=== PATIENT | female | born 2000 | race Caucasian/White ===

== ENCOUNTER 2025-03-04 17:37 | Observation (INO) ==
[2025-03-04 18:02] LABS: Hematocrit (blood only) 40.6 % (37.0-47.0); Hemoglobin 13.3 g/dl (12.0-16.0); Immature Granulocytes # (auto) 0.03 K/uL (0.01-0.20); Immature Granulocytes % (auto) 0.4 %; Mean Corpuscular Hemoglobin 25.8 pg (25.0-34.0); Mean Corpuscular Volume 78.7 fL (80.0-100.0); Platelet Count 392 K/uL (130-400); RDW Standard Deviation 40.4 fL (36.4-46.3); Red Blood Count 5.16 M/uL (4.20-5.40); White Blood Count 7.90 K/ul (4.8-10.8)
[2025-03-04 18:19] LABS: Alanine Aminotransferase 440.0 U/L (7-52); Albumin Globulin Ratio 1.3 (0.9-2); Albumin Level 4.8 gm/dl (3.4-5.0); Alkaline Phosphatase 125.0 U/L (34-104); Anion Gap 5.0 (3-11); Bilirubin,Total 2.8 mg/dl (0.2-1.0); Blood Urea Nitrogen 9.0 mg/dl (6-23); Calcium 9.6 mg/dl (8.6-10.3); Carbon Dioxide 27.0 mmol/L (21-32); Chloride 104.0 mmol/L (98-107); Creatinine Clr Calc Pharmacy 113.1 ml/min; Globulin 3.7 gm/dl (2.5-4.0); Glucose 95.0 mg/dl (70-99(Fasting)); Lipase 15.0 U/L (11-82); Potassium 4.6 mmol/L (3.5-5.1); Sodium 136.0 mmol/L (136-145); Total Protein 8.5 gm/dl (6.0-8.3)
[2025-03-04 18:20] LABS: Pregnancy Test, Serum Negative (Negative)
[2025-03-04] MEDS: PLASMA-LYTE A 1,000 ML IV ONE (18:22)
[2025-03-04] MEDS: KETOROLAC TROMETHAMINE 15 MG/ML VIAL IV STA (18:22)
--- NOTE | 2025-03-04 18:55 | Emergency Department Note ---
Impression & Plan Symptomatic cholelithiasis, Transaminitis ED Provider Note NAME: MORENITA CALDERÓN AGE: 25 SEX: F : 2000 ARRIVES VIA: Walk-In INFORMANT: Patient, partner ED PROVIDER(S): Milad Wilson DO CHIEF COMPLAINT: abdominal pain HPI: This is a 25-year-old female with the PMHx of hypothyroidism, BA and recent presenting to [facility] for further evaluation of abdominal pain. Patient is accompanied by her partner who provide additional history. The patient reports that she was recently GL for evaluation of abdominal pain. This approximately 3 days ago. She was diagnosed with symptomatic cholelithiasis and discharged. She states that she has not had follow-up with general surgery. She states that her pain as well as nausea and vomiting have worsened. This led to her presentation today. They deny fever or chills. No cough or congestion. Denies chest pain or palpitations. No shortness of breath. She denies any abdominal surgical history. No urinary complaints. No recent changes in bowel movements. Patient denies recent changes in medications or OTC supplements. Patient offers no other complaints, today. ADDITIONAL HISTORY OBTAINED: Per HPI Chronic Medical/Social Conditions Affecting Care: Per HPI PAST MEDICAL HISTORY: See Below PAST SURGICAL HISTORY: See Below FAMILY HISTORY: See Below SOCIAL HISTORY: See Below HOME MEDICATIONS: See Below ALLERGIES: See Below VITALS: See Below PHYSICAL EXAMINATION: GENERAL: Sitting up in bed, alert, well appearing, well nourished, no distress, non-toxic EYE EXAM: normal conjunctiva. PERRL and EOM's grossly intact. OROPHARYNX: no exudate, no erythema, lips, buccal mucosa, and tongue normal and mucous membranes are moist NECK: supple, no nuchal rigidity, no adenopathy, non-tender LUNGS: Clear to auscultation. Normal chest wall mechanics HEART: no murmurs, regular rate, regular rhythm ABDOMEN: abdomen soft, Right upper quadrant and epigastric tenderness to palpation, positive Gannon sign, no evidence of peritonitis, no masses, no rebound or guarding. BACK: Back is symmetrical on inspection and there is no deformity, no midline tenderness, no CVA tenderness. SKIN: no rashes and no bruising UPPER EXTREMITIES: upper extremities are grossly normal. LOWER EXTREMITIES: No pitting edema. NEURO EXAM: Normal sensorium, GCS 15, normal speech, no gross weakness of arms, no gross weakness of legs. MEDICAL DECISION MAKING: Differential diagnoses includes but not limited to symptomatic cholelithiasis, acute cholecystitis, choledocholithiasis, appendicitis, bowel obstruction, diverticulitis, malignancy, nephrolithiasis, gastroenteritis, ACS, PNA, pancreatitis, hepatobiliary disease, UTI In summary, this is a 25 year old female who presented with abdominal pain. Differential as above. Nursing notes and pertinent past medical records reviewed. Vital signs reviewed and the patient is mildly hypertensive but otherwise afebrile and HDs. History and presentation revealed recent evaluation at [facility] on 03/02. She was diagnosed with symptomatic cholelithiasis and discharged. She has not followed up with EGS. Her pain and nausea worsened leading to presentation in the ED. Physical examination revealed RUQ/epigastrium TTP without evidence of peritonitis. As a result of my initial evaluation, we will plan to repeat the patient's labs today as well as right upper quadrant ultrasound. Do feel the patient's symptoms today are consistent with hepatobiliary pathology. Would consider symptomatic cholelithiasis, acute cholecystitis or choledocholithiasis. I do not have concerns for other intra- abdominal or pathology at this time. Will give IV fluid resuscitation as well as Toradol for pain control. Diagnostics interpreted by me include cardiac monitoring as listed below: -Cardiac Monitoring: An order was placed for continuous cardiac monitoring. The monitor shows a rate of 60-100 with regular rhythm. Patient completed laboratory studies and imaging. Results independently interpreted by me as below. The patient was managed with IV fluid resuscitation and Toradol. In summary, relatively healthy 25yoF diagnosed with symptomatic cholelithiasis on 03/01 at [facility]. Now with worsening pain. No fevers, WBC. New transaminitis - AST 503, ALT 440, AlkPhos 125. Tbili 2.8 w/ dBili 1.8. She is comfortable after fluids and pain medications. Cholelithiasis on US. CBD is 3mm. Patient was discussed with gastroenterology who recommended MRCP and coverage with IV antibiotics. Patient was started on IV Zosyn. Patient's MRCP was ordered. Further workup and evaluation deferred to the hospitalist team. Ultimately, the decision was made to admit the patient for symptomatic cholelithiasis with concerns for choledocholithiasis. I discussed the case with the hospitalist service via telephone/Tiger[employer] and they are agreeable to admit the patient to their services by Dr. Bustillo. Based on the above, including the patient's age, coexisting illnesses, labs, imaging, and exam findings the decision to treat as an inpatient. I discussed the patient with the hospitalist team who recommended admission to their services. They received the medications, treatments, interventions indicated above and their condition remained stable. I discussed my findings with the patient and their family and they understand and agree with the treatment plan. All patient / family questions were answered to their satisfaction. Consults/Care Managements Discussions: Per MDM ER treatment provided: See above Procedures:none Critical Care: None The chart was completed utilizing Synerscope voice recognition software. Grammatical errors, random word insertions, pronoun errors, and incomplete sentences are an occasional consequence of this system due to software limitations, ambient noise, and hardware issues. Any formal questions or concerns about the content, text, or information contained within the body of this dictation should be directly addressed to the physician for clarification. Past Med/Surg History Problem List (Updated 03/05/25 @ 16:09 by Milad Wilson DO) Transaminitis (Acute) Symptomatic cholelithiasis (Acute) Abnormal LFTs RUQ pain Headache with 35 completed weeks gestation Iron deficiency anemia of Hypothyroidism Dichorionic diamniotic twin , antepartum Gestational diabetes Encounter for anatomic survey Hypothyroidism affecting Chronic hypertension during , antepartum Medical History Monochorionic diamniotic twin Varicella vaccination Anxiety Hypertension Obesity (BMI 35.0-39.9 without comorbidity) Chris's thyroiditis Prediabetes Surgical History H/O left wrist surgery ganglion cyst Family History Mother Diabetes pre-diabetes Grandmother (Maternal) Osteoarthritis Grandfather (Maternal) Dementia, Onset Age: 68 Kidney disease Denies family history of Ovarian cancer Prostate cancer Deep vein thrombosis Coronary heart disease Dyslipidemia Alzheimer disease Bipolar disorder Crohn's disease Depression Heart disease Kidney disease Myocardial infarction Breast cancer Lung cancer COPD (chronic obstructive pulmonary disease) Colorectal cancer Pulmonary embolism Cancer Hypertension Ulcerative colitis Colonic polyp Stroke Asthma Social History (Reviewed 03/05/25 @ 03:20 by TERRY Brewster Smoking Status: Unknown if ever smoked Second Hand Exposure: No; Do You Dip or Chew Tobacco: No; Hx Alcohol Use: No Hx Substance Use: No Preferred Language: Faroese Communication Ability: Effective Visual Impairment: Limited Hearing Ability: Normal Sales And Merchandising Representative Required: No Beliefs That Will Affect Care: None marital status: marital status details: Bienvenido Calderón (22) [phone] Current Living Situation: Family Current Living Situation Comment: lives with spouse and 2 dogs current occupational status: employed current occupation: [employer] How many Children do You have: 0 Feels Safe at Home: Yes Childhood Exposure to Second-Hand Smoke: Yes Dental Care, Regularly: Yes Seatbelt Use: always Sunscreen Use: Yes Assistive Devices: None Allergies Allergies Allergy/AdvReac Type Severity Reaction Status Date / Time No Known Allergies Allergy Verified 03/04/25 20:30 Home Meds Previous Rx's Medication Instructions Recorded omeprazole 20 mg capsule,delayed 20 mg PO HS #34 caps 03/02/25 release Results & Data (ED) Vital Signs Vital Signs - 24 hr 03/04/25 17:43 03/04/25 18:24 03/04/25 20:00 Temperature 36.4 C L Temperature Source Temporal Artery Scan Pulse Rate 99 H Pulse Rate [Left Finger] 75 67 Pulse Rhythm [Left Finger] Pulse Strength [Left Finger] Respiratory Rate 18 20 16 Respiratory Effort / Characteristics Non-Labored Non-Labored Spontaneous Respiratory Depth Normal Normal Respiratory Pattern Regular Regular Blood Pressure 160/98 H Blood Pressure [Left Arm] 155/93 H 148/119 H Blood Pressure Mean 118 Blood Pressure Mean [Left Arm] 113 128 Blood Pressure Position [Left Arm] Pulse Oximetry 98 97 97 Oxygen Delivery Method Room Air Room Air Room Air Sepsis Recent Fever Within 48 Hours No Sepsis New/Unexplained Change in Mental Status N/A Sepsis Action Taken by Nursing No Action Required 03/04/25 21:00 Temperature Temperature Source Pulse Rate Pulse Rate [Left Finger] 81 Pulse Rhythm [Left Finger] Regular Pulse Strength [Left Finger] Normal Respiratory Rate 16 Respiratory Effort / Characteristics Non-Labored Spontaneous Respiratory Depth Normal Respiratory Pattern Regular Blood Pressure Blood Pressure [Left Arm] 133/96 Blood Pressure Mean Blood Pressure Mean [Left Arm] 108 Blood Pressure Position [Left Arm] Lying Pulse Oximetry 98 Oxygen Delivery Method Room Air Sepsis Recent Fever Within 48 Hours Sepsis New/Unexplained Change in Mental Status Sepsis Action Taken by Nursing Laboratory Data 03/05/25 04:21 03/05/25 15:05 Lab Results 03/04/25 03/04/25 Range/Units 17:52 20:00 WBC 7.90 (4.8-10.8) K/ul RBC 5.16 (4.20-5.40) M/uL Hgb 13.3 (12.0-16.0) g/dl Hct 40.6 (37.0-47.0) % MCV 78.7 L (80.0-100.0) fL MCH 25.8 (25.0-34.0) pg MCHC 32.8 (32.0-36.0) g/dL RDW Std Deviation 40.4 (36.4-46.3) fL RDW Coeff of Rei 14.2 (11.5-14.5) % Plt Count 392 (130-400) K/uL MPV 10.6 (9.4-12.4) fL Immature Gran % (Auto) 0.4 % Neut % (Auto) 62.0 % Lymph % (Auto) 27.6 % [place] % (Auto) 7.6 % Eos % (Auto) 1.6 % Baso % (Auto) 0.8 % Neut # (Auto) 4.90 (1.40-6.50) K/uL Lymph # (Auto) 2.18 (1.20-3.40) K/uL [place] # (Auto) 0.60 H (0.11-0.59) K/uL Eos # (Auto) 0.13 (0.00-0.50) K/uL Baso # (Auto) 0.06 (0.00-0.20) K/uL Immature Gran # (Auto) 0.03 (0.01-0.20) K/uL Sodium 136 (136-145) mmol/L Potassium 4.6 (3.5-5.1) mmol/L Chloride 104 (98-107) mmol/L Carbon Dioxide 27 (21-32) mmol/L Anion Gap 5 (3-11) BUN 9 (6-23) mg/dl Creatinine 0.71 (0.6-1.2) mg/dl Est Cr Clr Drug Dosing 113.1 ml/min eGFR 121.69 BUN/Creatinine Ratio 12.7 (10-20) Glucose 95 (70-99(Fasting)) mg/dl Calcium 9.6 (8.6-10.3) mg/dl Total Bilirubin 2.8 H (0.2-1.0) mg/dl Direct Bilirubin 1.8 H (0-0.2) mg/dl AST 503 H (13-39) U/L ALT 440 H (7-52) U/L Alkaline Phosphatase 125 H (34-104) U/L Total Protein 8.5 H (6.0-8.3) gm/dl Albumin 4.8 (3.4-5.0) gm/dl Globulin 3.7 (2.5-4.0) gm/dl Albumin/Globulin Ratio 1.3 (0.9-2) Lipase 15 (11-82) U/L HCG, Qual Negative (Negative) Urine Color Yellow Urine Appearance Clear (Clear) Urine pH 6.5 (4.5-7.5) Ur Specific Adams 1.006 (1.000-1.030) Urine Protein Negative (Negative) Urine Glucose (UA) Negative (Negative) Urine Ketones Negative (Negative) Urine Blood Negative (Negative) Urine Nitrite Negative (Negative) Urine Bilirubin Negative (Negative) Urine Urobilinogen Negative (Negative) Ur Leukocyte Esterase Negative (Negative) Urine Comment Administered Medications Piperacillin Sod/Tazobactam Sod (Zosyn) 4.5 gm in 100 mls @ 25 mls/hr IV Q8H ELBA; Protocol Stop: 03/15/25 03:59 Last Admin: 03/05/25 11:43 Dose: 25 mls/hr Documented By: Infusion: 03/05/25 08:58 Dose: Infused Documented By: Admin: 03/05/25 04:07 Dose: 25 mls/hr Documented By: JARON Pantoprazole Sodium (Protonix) 40 mg in 10 mls @ 5 mls/min IV DAILY ELBA Stop: 04/04/25 08:59 Last Admin: 03/05/25 08:08 Dose: 5 mls/min Documented By: DODIE Lactated Ringer's (Lr) 1,000 mls @ 125 mls/hr IV .Q8H ELBA Stop: 03/05/25 16:44 Last Admin: 03/05/25 11:43 Dose: 125 mls/hr Documented By: Infusion: 03/05/25 11:43 Dose: Infused Documented By: Admin: 03/05/25 00:53 Dose: 125 mls/hr Documented By: ASW Discontinued Medications Parenteral Electrolytes (Plasma-Lyte A Ph 7.4) 1,000 mls @ 999 mls/hr IV .Q1H1M ONE Stop: 03/04/25 19:03 Last Infusion: 03/04/25 20:16 Dose: Infused Documented By: Infusion: 03/04/25 19:52 Dose: 999 mls/hr Documented By: Infusion: 03/04/25 19:20 Dose: 0 mls/hr Documented By: Admin: 03/04/25 18:22 Dose: 999 mls/hr Documented By: DARREL Piperacillin Sod/Tazobactam Sod (Zosyn) 4.5 gm in 100 mls @ 200 mls/hr IV NOW ONE; Protocol Stop: 03/04/25 20:38 Last Infusion: 03/04/25 21:37 Dose: Infused Documented By: Admin: 03/04/25 21:07 Dose: 200 mls/hr Documented By: MACK Ketorolac Tromethamine (Ketorolac Tromethamine 15 Mg/Ml Vial) 15 mg IV NOW STA Stop: 03/04/25 18:04 Last Admin: 03/04/25 18:22 Dose: 15 mg Documented By: DARREL Imaging Data Radiologist's Impression: Gallbladder Ultrasound 03/04/25 18:03 EXAMINATION: US abdomen right upper quadrant COMPARISON: None HISTORY: Abdominal pain TECHNIQUE: The right upper quadrant of the abdomen was scanned in standard fashion with specialized ultrasound transducers using both villasenor scale and limited color Doppler techniques. Findings: Liver: The liver demonstrates normal homogeneous echotexture. No evidence of a focal hepatic mass or intrahepatic biliary ductal dilatation. The main portal vein is patent with antegrade flow. Gallbladder: The gallbladder is well distended and of normal morphology. There is scattered mobile gallstones. Sonographic Gannon sign is negative. No gallbladder wall thickening or pericholecystic fluid identified. Bile Ducts: Both the intra- and extrahepatic biliary system are of normal caliber. The common bile duct measures 3 mm in diameter. Pancreas: Visualized portions of the head and body of the pancreas are unremarkable. Right kidney: Normal echotexture, without mass or hydronephrosis. Right kidney craniocaudal dimension: 10.7 cm Fluid: No evidence of ascites or pleural effusions. Impression: 1. Cholelithiasis without evidence for acute cholecystitis Electronically signed by Marcel Byrd 03-04-2025 7:55 PM Cholangiopancreatography MRI 03/04/25 20:09 Exam(s): MRI MRCP EXAM: MR Abdomen Without Intravenous Contrast, MRCP Protocol CLINICAL HISTORY: Reason for exam: eval for choledoco. TECHNIQUE: Multiplanar magnetic resonance images of the abdomen without intravenous contrast using MRCP protocol. COMPARISON: No relevant prior studies available. FINDINGS: Bile ducts: Unremarkable. No stones. No ductal dilation. Gallbladder: Cholelithiasis without evidence acute cholecystitis. Liver: Unremarkable. Pancreas: Unremarkable. No ductal dilation. Spleen: Unremarkable. No splenomegaly. Adrenals: Unremarkable. No mass. Kidneys and ureters: Unremarkable. No hydronephrosis. Stomach and bowel: Unremarkable. No obstruction. IMPRESSION: No acute findings in the visualized abdomen. Electronically signed by: Paul Buck MD 03/04/25 21:45 PM Discharge Plan Visit Data Chief Complaint: Abdominal Pain Stated Complaint: PAIN IN STOMACH ED Provider: Milad Wilson Discharge Problem: Symptomatic cholelithiasis, Transaminitis Patient Disposition: Admitted As Inpatient Condition: Serious Discharge Instructions Interventions: ED Discharge Assessment Last Done: 03/05/25 00:32
--- NOTE | 2025-03-04 19:55 | Ultrasound Report ---
EXAMINATION: US abdomen right upper quadrant COMPARISON: None HISTORY: Abdominal pain TECHNIQUE: The right upper quadrant of the abdomen was scanned in standard fashion with specialized ultrasound transducers using both villasenor scale and limited color Doppler techniques. Findings: Liver: The liver demonstrates normal homogeneous echotexture. No evidence of a focal hepatic mass or intrahepatic biliary ductal dilatation. The main portal vein is patent with antegrade flow. Gallbladder: The gallbladder is well distended and of normal morphology. There is scattered mobile gallstones. Sonographic Gannon sign is negative. No gallbladder wall thickening or pericholecystic fluid identified. Bile Ducts: Both the intra- and extrahepatic biliary system are of normal caliber. The common bile duct measures 3 mm in diameter. Pancreas: Visualized portions of the head and body of the pancreas are unremarkable. Right kidney: Normal echotexture, without mass or hydronephrosis. Right kidney craniocaudal dimension: 10.7 cm Fluid: No evidence of ascites or pleural effusions. Impression: 1. Cholelithiasis without evidence for acute cholecystitis Electronically signed by Marcel Byrd 03-04-2025 7:55 PM
[2025-03-04 20:11] LABS: Appearance Urine Clear (Clear); Glucose Urine UA Negative (Negative)
[2025-03-04] MEDS: PIPERACILLIN/TAZOBACTAM 4.5 GM/100 ML BAG IV ONE (21:07)
--- NOTE | 2025-03-04 21:27 | History & Physical Report ---
Date of Service March 04, 2025 Assessment & Plan (1) RUQ pain: (2) Abnormal LFTs: Plan 25-year-old female presenting with right upper quadrant pain, abnormal LFTs. Gallbladder ultrasound reveals cholelithiasis with no evidence of acute cholecystitis. MRCP completed with no abnormalities noted #Right upper quadrant pain/abnormal LFTs/cholelithiasis Observation to medical Keep n.p.o. for now LR at 125 mL/h x 2 L Toradol as needed for pain control Zofran as needed for nausea Empiric treatment with Zosyn for now Continue Protonix GI consultation appreciated Check acute hepatitis panel, acetaminophen level and INR Repeat LFTs in the morning #DVT prophylaxis SCDs to bilateral lower extremities History of Present Illness Chief Complaint: right upper quadrant abdominal pain Primary Care Provider: ASHLEIGH Christophershira Mustafa is a pleasant 25yo female Presenting with right upper quadrant pain. Patient was seen at [facility] emergency room on 03/01 with right upper quadrant and epigastric pain. Reports she has tried ibuprofen, Tums and Gas-X which provide temporary relief. She had an ultrasound of the gallbladder which revealed no evidence of cholecystitis or obstruction. She was ultimately discharged home on omeprazole. She has been taking Tylenol and Pepcid. Returns to the ER today with worsening pain, radiation into her back. Some discomfort with deep breaths, nausea and decreased PO intake. Allergies Allergy/AdvReac Type Severity Reaction Status Date / Time No Known Allergies Allergy Verified 03/04/25 20:30 Home Medications Medication Instructions Recorded Confirmed Type omeprazole 20 mg capsule,delayed 20 mg PO HS #34 caps 03/02/25 03/04/25 Rx release Past Med/Surg History Problem List (Updated 03/05/25 @ 03:22 by Marla Bustillo DO) Abnormal LFTs RUQ pain Headache with 35 completed weeks gestation Iron deficiency anemia of Hypothyroidism Dichorionic diamniotic twin , antepartum Gestational diabetes Encounter for anatomic survey Hypothyroidism affecting Chronic hypertension during , antepartum Medical History Monochorionic diamniotic twin Varicella vaccination Anxiety Hypertension Obesity (BMI 35.0-39.9 without comorbidity) Chris's thyroiditis Prediabetes Surgical History H/O left wrist surgery ganglion cyst Family History Mother Diabetes pre-diabetes Grandmother (Maternal) Osteoarthritis Grandfather (Maternal) Dementia, Onset Age: 68 Kidney disease Denies family history of Ovarian cancer Prostate cancer Deep vein thrombosis Coronary heart disease Dyslipidemia Alzheimer disease Bipolar disorder Crohn's disease Depression Heart disease Kidney disease Myocardial infarction Breast cancer Lung cancer COPD (chronic obstructive pulmonary disease) Colorectal cancer Pulmonary embolism Cancer Hypertension Ulcerative colitis Colonic polyp Stroke Asthma Social History Smoking Status: Unknown if ever smoked Second Hand Exposure: No; Do You Dip or Chew Tobacco: No; Hx Alcohol Use: No Hx Substance Use: No Preferred Language: [place] Citizen Communication Ability: Effective Visual Impairment: Limited Hearing Ability: Normal Social Service Liaison Required: No Beliefs That Will Affect Care: None marital status: marital status details: Bienvenido Mustafa (22) [phone] Current Living Situation: Family Current Living Situation Comment: lives with spouse and 2 dogs current occupational status: employed current occupation: [employer] How many Children do You have: 0 Feels Safe at Home: Yes Childhood Exposure to Second-Hand Smoke: Yes Dental Care, Regularly: Yes Seatbelt Use: always Sunscreen Use: Yes Review of Systems Review of Systems: All systems reviewed & are unremarkable except as noted in HPI & below Physical Exam Physical Exam: General: patient resting comfortably, NAD, non-toxic in appearance, AA&O x 4 Skin: warm, dry, intact, no rashes or lesions HEENT: NC/AT, PERRL, EOMI, anicteric sclera, conjunctiva without injection, external ear normal to inspection and nontender, nares patent, moist mucus membranes, dentition intact, no oropharyngeal lesions, neck supple, trachea midline, no LAD, no thyromegaly, no JVD Heart: +S1/S2, regular, no m/r/g Lungs: equal air entry bilaterally, no rales/rhonchi/wheezes Abd: +BS, soft, ND, +RUQ tenderness with voluntary guarding, no masses/organomegaly/ascites Ext: warm, 2+ pulses in UE/LE bilaterally, no clubbing/cyanosis or edema Neuro: nonfocal, patient AA&O x 4, speech intact, no facial droop, moving all extremities on command with equal strength 5/5 Results & Data Results & Data Vital Signs (Past 12 Hours) Vital Signs Temp Pulse Pulse Resp BP BP Pulse Ox 03/04/25 21:00 81 16 133/96 98 03/04/25 20:00 67 16 148/119 H 97 03/04/25 18:24 75 20 155/93 H 97 03/04/25 17:43 36.4 C L 99 H 18 160/98 H 98 O2 Del Method 03/04/25 21:00 Room Air 03/04/25 20:00 Room Air 03/04/25 18:24 Room Air 03/04/25 17:43 Room Air Laboratory Results Laboratory Results WBC 7.90 K/ul (4.8-10.8) 03/04/25 17:52 RBC 5.16 M/uL (4.20-5.40) 03/04/25 17:52 Hgb 13.3 g/dl (12.0-16.0) 03/04/25 17:52 Hct 40.6 % (37.0-47.0) 03/04/25 17:52 MCV 78.7 fL (80.0-100.0) L 03/04/25 17:52 MCH 25.8 pg (25.0-34.0) 03/04/25 17:52 MCHC 32.8 g/dL (32.0-36.0) 03/04/25 17:52 RDW Std Deviation 40.4 fL (36.4-46.3) 03/04/25 17:52 RDW Coeff of Rei 14.2 % (11.5-14.5) 03/04/25 17:52 Plt Count 392 K/uL (130-400) 03/04/25 17:52 MPV 10.6 fL (9.4-12.4) 03/04/25 17:52 Immature Gran % (Auto) 0.4 % 03/04/25 17:52 Neut % (Auto) 62.0 % 03/04/25 17:52 Lymph % (Auto) 27.6 % 03/04/25 17:52 [place] % (Auto) 7.6 % 03/04/25 17:52 Eos % (Auto) 1.6 % 03/04/25 17:52 Baso % (Auto) 0.8 % 03/04/25 17:52 Neut # (Auto) 4.90 K/uL (1.40-6.50) 03/04/25 17:52 Lymph # (Auto) 2.18 K/uL (1.20-3.40) 03/04/25 17:52 [place] # (Auto) 0.60 K/uL (0.11-0.59) H 03/04/25 17:52 Eos # (Auto) 0.13 K/uL (0.00-0.50) 03/04/25 17:52 Baso # (Auto) 0.06 K/uL (0.00-0.20) 03/04/25 17:52 Immature Gran # (Auto) 0.03 K/uL (0.01-0.20) 03/04/25 17:52 Sodium 136 mmol/L (136-145) 03/04/25 17:52 Potassium 4.6 mmol/L (3.5-5.1) 03/04/25 17:52 Chloride 104 mmol/L (98-107) 03/04/25 17:52 Carbon Dioxide 27 mmol/L (21-32) 03/04/25 17:52 Anion Gap 5 (3-11) 03/04/25 17:52 BUN 9 mg/dl (6-23) 03/04/25 17:52 Creatinine 0.71 mg/dl (0.6-1.2) 03/04/25 17:52 Est Cr Clr Drug Dosing 113.1 ml/min 03/04/25 17:52 eGFR 121.69 03/04/25 17:52 BUN/Creatinine Ratio 12.7 (10-20) 03/04/25 17:52 Glucose 95 mg/dl (70-99(Fasting)) 03/04/25 17:52 Calcium 9.6 mg/dl (8.6-10.3) 03/04/25 17:52 Total Bilirubin 2.8 mg/dl (0.2-1.0) H 03/04/25 17:52 Direct Bilirubin 1.8 mg/dl (0-0.2) H 03/04/25 17:52 AST 503 U/L (13-39) H 03/04/25 17:52 ALT 440 U/L (7-52) H 03/04/25 17:52 Alkaline Phosphatase 125 U/L (34-104) H 03/04/25 17:52 Total Protein 8.5 gm/dl (6.0-8.3) H 03/04/25 17:52 Albumin 4.8 gm/dl (3.4-5.0) 03/04/25 17:52 Globulin 3.7 gm/dl (2.5-4.0) 03/04/25 17:52 Albumin/Globulin Ratio 1.3 (0.9-2) 03/04/25 17:52 Lipase 15 U/L (11-82) 03/04/25 17:52 HCG, Qual Negative (Negative) 03/04/25 17:52 Urine Color Yellow 03/04/25 20:00 Urine Appearance Clear (Clear) 03/04/25 20:00 Urine pH 6.5 (4.5-7.5) 03/04/25 20:00 Ur Specific [place] 1.006 (1.000-1.030) 03/04/25 20:00 Urine Protein Negative (Negative) 03/04/25 20:00 Urine Glucose (UA) Negative (Negative) 03/04/25 20:00 Urine Ketones Negative (Negative) 03/04/25 20:00 Urine Blood Negative (Negative) 03/04/25 20:00 Urine Nitrite Negative (Negative) 03/04/25 20:00 Urine Bilirubin Negative (Negative) 03/04/25 20:00 Urine Urobilinogen Negative (Negative) 03/04/25 20:00 Ur Leukocyte Esterase Negative (Negative) 03/04/25 20:00 Urine Comment 03/04/25 20:00 Impressions Gallbladder Ultrasound 03/04/25 18:03 EXAMINATION: US abdomen right upper quadrant COMPARISON: None HISTORY: Abdominal pain TECHNIQUE: The right upper quadrant of the abdomen was scanned in standard fashion with specialized ultrasound transducers using both villasenor scale and limited color Doppler techniques. Findings: Liver: The liver demonstrates normal homogeneous echotexture. No evidence of a focal hepatic mass or intrahepatic biliary ductal dilatation. The main portal vein is patent with antegrade flow. Gallbladder: The gallbladder is well distended and of normal morphology. There is scattered mobile gallstones. Sonographic Gannon sign is negative. No gallbladder wall thickening or pericholecystic fluid identified. Bile Ducts: Both the intra- and extrahepatic biliary system are of normal caliber. The common bile duct measures 3 mm in diameter. Pancreas: Visualized portions of the head and body of the pancreas are unremarkable. Right kidney: Normal echotexture, without mass or hydronephrosis. Right kidney craniocaudal dimension: 10.7 cm Fluid: No evidence of ascites or pleural effusions. Impression: 1. Cholelithiasis without evidence for acute cholecystitis Electronically signed by Marcel Byrd 03-04-2025 7:55 PM Cholangiopancreatography MRI 03/04/25 20:09 Exam(s): MRI MRCP EXAM: MR Abdomen Without Intravenous Contrast, MRCP Protocol CLINICAL HISTORY: Reason for exam: eval for choledoco. TECHNIQUE: Multiplanar magnetic resonance images of the abdomen without intravenous contrast using MRCP protocol. COMPARISON: No relevant prior studies available. FINDINGS: Bile ducts: Unremarkable. No stones. No ductal dilation. Gallbladder: Cholelithiasis without evidence acute cholecystitis. Liver: Unremarkable. Pancreas: Unremarkable. No ductal dilation. Spleen: Unremarkable. No splenomegaly. Adrenals: Unremarkable. No mass. Kidneys and ureters: Unremarkable. No hydronephrosis. Stomach and bowel: Unremarkable. No obstruction. IMPRESSION: No acute findings in the visualized abdomen. Electronically signed by: Paul Buck MD 03/04/25 21:45 PM PG Care Time/CCT Total # of Minutes Spent Total Time Spent with Patient: Total time spent is greater than 50% in coordination of care (as documented) at patient's floor/unit and/or counseling patient: Coding Level of Care Code 47252 INT INP/OBS CARE 3/75MIN Diagnoses RUQ pain R10.11 Abnormal LFTs R79.89
--- NOTE | 2025-03-04 21:47 | Magnetic Resonance Report ---
Exam(s): MRI MRCP EXAM: MR Abdomen Without Intravenous Contrast, MRCP Protocol CLINICAL HISTORY: Reason for exam: eval for choledoco. TECHNIQUE: Multiplanar magnetic resonance images of the abdomen without intravenous contrast using MRCP protocol. COMPARISON: No relevant prior studies available. FINDINGS: Bile ducts: Unremarkable. No stones. No ductal dilation. Gallbladder: Cholelithiasis without evidence acute cholecystitis. Liver: Unremarkable. Pancreas: Unremarkable. No ductal dilation. Spleen: Unremarkable. No splenomegaly. Adrenals: Unremarkable. No mass. Kidneys and ureters: Unremarkable. No hydronephrosis. Stomach and bowel: Unremarkable. No obstruction. IMPRESSION: No acute findings in the visualized abdomen. Electronically signed by: Paul Buck MD 03/04/25 21:45 PM
[2025-03-05] MEDS: LACTATED RINGER'S 1,000 ML IV SCH (00:53)
[2025-03-05] MEDS: PIPERACILLIN/TAZOBACTAM 4.5 GM/100 ML BAG IV SCH (04:07)
[2025-03-05 05:08] LABS: Hematocrit (blood only) 37.1 % (37.0-47.0); Hemoglobin 11.9 g/dl (12.0-16.0); Mean Corpuscular Hemoglobin 25.5 pg (25.0-34.0); Mean Corpuscular Volume 79.4 fL (80.0-100.0); Platelet Count 312 K/uL (130-400); RDW Standard Deviation 41.1 fL (36.4-46.3); Red Blood Count 4.67 M/uL (4.20-5.40); White Blood Count 6.55 K/ul (4.8-10.8)
[2025-03-05 05:22] LABS: Alanine Aminotransferase 453.0 U/L (7-52); Albumin Level 3.7 gm/dl (3.4-5.0); Alkaline Phosphatase 132.0 U/L (34-104); Anion Gap 6.0 (3-11); Bilirubin,Total 2.2 mg/dl (0.2-1.0); Blood Urea Nitrogen 8.0 mg/dl (6-23); Calcium 8.8 mg/dl (8.6-10.3); Carbon Dioxide 26.0 mmol/L (21-32); Chloride 106.0 mmol/L (98-107); Creatinine Clr Calc Pharmacy 108.5 ml/min; Glucose 100.0 mg/dl (70-99(Fasting)); Potassium 4.4 mmol/L (3.5-5.1); Sodium 138.0 mmol/L (136-145); Total Protein 7.0 gm/dl (6.0-8.3)
[2025-03-05 05:40] LABS: INR 1.0 (0.9-1.1); Prothrombin Time 10.6 Seconds (9.0-12.0)
[2025-03-05 05:51] LABS: Hep B Surface Ag with confirm Negative (Negative)
[2025-03-05 05:56] LABS: Hep C Ab Rflx HepCQuant RNA Negative (Negative)
[2025-03-05] MEDS: PANTOprazole 40 MG/10 ML SYR IV SCH (08:08)
--- NOTE | 2025-03-05 13:13 | Gastrointestinal Consultation ---
Date of Consultation March 05, 2025 Assessment & Plan (1) RUQ pain: (2) Abnormal LFTs: Plan No MRCP evidence of choledocholithiasis at present. Patient is afebrile and is not jaundiced. RUQ pain controlled at present. US shows gallstones without acute choelcystitis. -Would advise a clear liquid diet today -Would advise general surgery evaluation -No immediate role of ERCP given normal MRCP findings, but will trend LFTs. If rising, can re-evaluate this decision. -OK to continue IV Zosyn for now -Acute hepatitis panel pending Supervising Physician Co-Signing Physician Notes Agree with above. History and exam performed independently. MRCP looked negative and patient has a small duct. There are other gallstones. She states the pain is completely resolved. Liver tests for recheck tomorrow. Assuming they are improving recommend cholecystectomy. This ideally performed on this admission or in the very new future as she is risk for recurrent common duct stones. History of Present Illness Reason for Consultation: Abnormal LFTs, cholelithiasis Attending Physician: Alda Kennedy MD History of Present Illness Patient is a 25 yo female with RUQ pain that developed on Sunday. She describes the pain as sharp RUQ pain with radiation to the back. She notes food worsened the symptoms significantly. She notes that the pain became so severe that she went to [facility]. I do not have the records, imaging, or labs from that stay, but she reports she had an ultrasound that showed cholelithiasis. She reports she was given Omeprazole and Pepcid and subsequently discharged. She notes that she went home and was initially feeling better, but she notes that the pain returned within 24 hours and would not go away. She notes that eating anything worsened it. No jaundice, pruritus, or dark urine. She has a family history of gallstones. T Bili 2.2. D bili 1.3. AST 427. ALT 453. Alk phos 132. WBC 6,550. Patient afebrile. She is on IV Zosyn. GB US: Impression: 1. Cholelithiasis without evidence for acute cholecystitis MRCP: IMPRESSION: No acute findings in the visualized abdomen. PMH: Pre diabetic. 9 months . Allergies Allergy/AdvReac Type Severity Reaction Status Date / Time No Known Allergies Allergy Verified 03/04/25 20:30 Home Medications Medication Instructions Recorded Confirmed Type omeprazole 20 mg capsule,delayed 20 mg PO HS #34 caps 03/02/25 03/04/25 Rx release Patient History Medical History Monochorionic diamniotic twin Varicella vaccination Anxiety Hypertension Obesity (BMI 35.0-39.9 without comorbidity) Chris's thyroiditis Prediabetes Surgical History H/O left wrist surgery ganglion cyst Family History Mother Diabetes pre-diabetes Grandmother (Maternal) Osteoarthritis Grandfather (Maternal) Dementia, Onset Age: 68 Kidney disease Denies family history of Ovarian cancer Prostate cancer Deep vein thrombosis Coronary heart disease Dyslipidemia Alzheimer disease Bipolar disorder Crohn's disease Depression Heart disease Kidney disease Myocardial infarction Breast cancer Lung cancer COPD (chronic obstructive pulmonary disease) Colorectal cancer Pulmonary embolism Cancer Hypertension Ulcerative colitis Colonic polyp Stroke Asthma Social History Smoking Status: Unknown if ever smoked Second Hand Exposure: No; Do You Dip or Chew Tobacco: No; Hx Alcohol Use: No Hx Substance Use: No Preferred Language: Japanese Communication Ability: Effective Visual Impairment: Limited Hearing Ability: Normal Bottom Turning Lathe Tender Required: No Beliefs That Will Affect Care: None marital status: marital status details: Bienvenido Mustafa (22) [phone] Current Living Situation: Family Current Living Situation Comment: lives with spouse and 2 dogs current occupational status: employed current occupation: [employer] How many Children do You have: 0 Feels Safe at Home: Yes Childhood Exposure to Second-Hand Smoke: Yes Dental Care, Regularly: Yes Seatbelt Use: always Sunscreen Use: Yes Assistive Devices: None Review of Systems Constitutional: no fever and no chills Respiratory: no cough and no dyspnea Cardiovascular: no chest pain Gastrointestinal: + abdominal pain Integumentary: no yellowing of the skin Physical Exam Constitutional: well developed Respiratory: normal respiratory effort Cardiovascular: Rate/Rhythm: regular rate Gastrointestinal (Abdomen): normal bowel sounds, soft, nontender, no hepatosplenomegaly (nontender but notes she had pain meds) Results & Data Vital Signs (Past 12 Hours) Vital Signs Pulse Resp BP Pulse Ox O2 Del Method 03/05/25 11:45 83 14 150/100 H 97 Room Air 03/05/25 08:11 81 18 137/92 96 Room Air PG Care Time/CCT Total # of Minutes Spent Total Time Spent with Patient: Total time spent is greater than 50% in coordination of care (as documented) at patient's floor/unit and/or counseling patient: Coding Level of Care Code 36846 INT INP/OBS CARE 2/55MIN Diagnoses RUQ pain R10.11 Abnormal LFTs R79.89
[2025-03-05 15:40] LABS: Alanine Aminotransferase 376.0 U/L (7-52); Albumin Globulin Ratio 1.1 (0.9-2); Albumin Level 3.6 gm/dl (3.4-5.0); Alkaline Phosphatase 124.0 U/L (34-104); Anion Gap 4.0 (3-11); Bilirubin,Total 1.5 mg/dl (0.2-1.0); Blood Urea Nitrogen 8.0 mg/dl (6-23); Calcium 8.9 mg/dl (8.6-10.3); Carbon Dioxide 26.0 mmol/L (21-32); Chloride 107.0 mmol/L (98-107); Creatinine Clr Calc Pharmacy 105.6 ml/min; Globulin 3.3 gm/dl (2.5-4.0); Glucose 87.0 mg/dl (70-99(Fasting)); Potassium 4.3 mmol/L (3.5-5.1); Sodium 137.0 mmol/L (136-145); Total Protein 6.9 gm/dl (6.0-8.3)
--- NOTE | 2025-03-05 15:47 | Hospitalist Progress Note ---
Date of Service March 05, 2025 Assessment & Plan (1) RUQ pain: (2) Abnormal LFTs: Plan 25-year-old female presenting with right upper quadrant pain, abnormal LFTs. Gallbladder ultrasound reveals cholelithiasis with no evidence of acute cholecystitis. MRCP completed with no abnormalities noted #Right upper quadrant pain/abnormal LFTs/cholelithiasis Recived 2L LR. Continue Toradol as needed for pain control Zofran as needed for nausea Continue Zosyn Continue Protonix GI consultation appreciated - rec general surgery consult. trend LFTs, consider ERCP if increasing Hepatitis panel pending. tylenol level and INR WNL General Sugery consulted AM CMP #DVT prophylaxis SCDs to bilateral lower extremities Case discussed with GI 03/05 Admission and Anticipated Discharge Date Admission Date: March 04, 2025 Subjective Patient seen while holding in the ED, GI just finishing their visit pain is improved today she denies ETOH use last BM 2-3 days ago Review of Systems Review of Systems: All systems reviewed & are unremarkable except as noted in Subjective Physical Exam Physical Exam: General: NAD, VS as above Resp: normal respiratory effort, lungs clear to auscultation CV: RRR, no murmur, Abd: normal bowel sounds, non tender, soft Extremities: Moves all extremities, no edema Neuro: A&O x3, Results & Data Results & Data Vital Signs (Past 12 Hours) Vital Signs Pulse Resp BP Pulse Ox O2 Del Method 03/05/25 15:32 73 16 149/93 H 98 Room Air 03/05/25 11:45 83 14 150/100 H 97 Room Air 03/05/25 08:11 81 18 137/92 96 Room Air Laboratory Results cbc and chemistry reviwed PG Care Time/CCT Total # of Minutes Spent Total Time Spent with Patient: Total time spent is greater than 50% in coordination of care (as documented) at patient's floor/unit and/or counseling patient: Coding Level of Care Code 27977 SUB INP/OBS CARE 2/35MIN Diagnoses RUQ pain R10.11 Abnormal LFTs R79.89
[2025-03-05] MEDS: ONDANSETRON INJ 2 MG/ML 2 ML VIAL IV PRN (16:26)
[2025-03-05 16:43] VITALS: O2SAT 97
[2025-03-05] MEDS: KETOROLAC TROMETHAMINE 15 MG/ML VIAL IV PRN (20:36)
[2025-03-06 07:45] VITALS: BP 137/90; PULSE 69; RESP 16; TEMP 98.1
[2025-03-06 07:52] LABS: Alanine Aminotransferase 282.0 U/L (7-52); Albumin Globulin Ratio 1.3 (0.9-2); Albumin Level 3.9 gm/dl (3.4-5.0); Alkaline Phosphatase 111.0 U/L (34-104); Anion Gap 5.0 (3-11); Bilirubin,Total 1.0 mg/dl (0.2-1.0); Blood Urea Nitrogen 7.0 mg/dl (6-23); Calcium 8.9 mg/dl (8.6-10.3); Carbon Dioxide 26.0 mmol/L (21-32); Chloride 106.0 mmol/L (98-107); Creatinine Clr Calc Pharmacy 104.3 ml/min; Globulin 3.1 gm/dl (2.5-4.0); Glucose 96.0 mg/dl (70-99(Fasting)); Potassium 4.5 mmol/L (3.5-5.1); Sodium 137.0 mmol/L (136-145); Total Protein 7.0 gm/dl (6.0-8.3)
--- NOTE | 2025-03-06 09:00 | Surgery Consultation ---
Date of Consultation March 06, 2025 Assessment & Plan (1) Symptomatic cholelithiasis: will see as outpatient to discuss lap jarrod 2 week appt my office (2) Abnormal LFTs: MRCP negative LFTs trending down plan per GI medicine History of Present Illness Attending Physician: Armen Bryant History of Present Illness This is a 25YO female with known gallstones admitted with RUQ pain that radiated to her back. This pain has resolved. She has elevated LFTs consistent with CBD stones which are normalizing and a normal MRCP. Allergies Allergy/AdvReac Type Severity Reaction Status Date / Time No Known Allergies Allergy Verified 03/04/25 20:30 Home Medications Medication Instructions Recorded Confirmed Type omeprazole 20 mg capsule,delayed 20 mg PO HS #34 caps 03/02/25 03/04/25 Rx release Patient History Medical History Monochorionic diamniotic twin Varicella vaccination Anxiety Hypertension Obesity (BMI 35.0-39.9 without comorbidity) Chris's thyroiditis Prediabetes Surgical History H/O left wrist surgery ganglion cyst Family History Mother Diabetes pre-diabetes Grandmother (Maternal) Osteoarthritis Grandfather (Maternal) Dementia, Onset Age: 68 Kidney disease Denies family history of Ovarian cancer Prostate cancer Deep vein thrombosis Coronary heart disease Dyslipidemia Alzheimer disease Bipolar disorder Crohn's disease Depression Heart disease Kidney disease Myocardial infarction Breast cancer Lung cancer COPD (chronic obstructive pulmonary disease) Colorectal cancer Pulmonary embolism Cancer Hypertension Ulcerative colitis Colonic polyp Stroke Asthma Social History Smoking Status: Unknown if ever smoked Second Hand Exposure: No; Do You Dip or Chew Tobacco: No; Hx Alcohol Use: No Hx Substance Use: No Preferred Language: Frisian Communication Ability: Effective Visual Impairment: Limited Hearing Ability: Normal Helicopter Mechanic Required: No Beliefs That Will Affect Care: None marital status: marital status details: Bienvenido Mustafa (22) [phone] Current Living Situation: Family Current Living Situation Comment: lives with spouse and 2 dogs current occupational status: employed current occupation: [employer] How many Children do You have: 0 Feels Safe at Home: Yes Childhood Exposure to Second-Hand Smoke: Yes Dental Care, Regularly: Yes Seatbelt Use: always Sunscreen Use: Yes Assistive Devices: None Review of Systems Constitutional: no fever and no chills Eyes: no problem reported Respiratory: no cough and no dyspnea Cardiovascular: no chest pain Gastrointestinal: no abdominal pain, no nausea, no vomiting and no change in bowel habits Musculoskeletal: no back pain Neurologic: no localized weakness and no generalized weakness Psychiatric: no behavioral changes Hematologic / Lymphatic: no easy bleeding and no easy bruising Physical Exam Constitutional: WD/WN, vitals as above Eyes: no scleral abnormality Neck: trachea midline Respiratory: normal respiratory effort, lungs clear to auscultation Cardiovascular: RRR, no murmur, no edema Gastrointestinal (Abdomen): Inspection/Auscultation: abdomen normal to inspection and normal bowel sounds; abdomen not distended Percussion/Palpation: abdomen soft; abdomen nontender and no guarding Musculoskeletal: Head/Neck/Chest: normocephalic and head atraumatic Skin: no rashes, warm and dry Results & Data Vital Signs (Past 12 Hours) Vital Signs Temp Pulse Resp BP Pulse Ox O2 Del Method 03/06/25 07:26 36.7 C 69 16 137/90 97 Room Air 03/05/25 23:06 36.6 C 81 12 107/71 97 Room Air Diagnostic Findings EXAMINATION: US abdomen right upper quadrant COMPARISON: None HISTORY: Abdominal pain TECHNIQUE: The right upper quadrant of the abdomen was scanned in standard fashion with specialized ultrasound transducers using both villasenor scale and limited color Doppler techniques. Findings: Liver: The liver demonstrates normal homogeneous echotexture. No evidence of a focal hepatic mass or intrahepatic biliary ductal dilatation. The main portal vein is patent with antegrade flow. Gallbladder: The gallbladder is well distended and of normal morphology. There is scattered mobile gallstones. Sonographic Gannon sign is negative. No gallbladder wall thickening or pericholecystic fluid identified. Bile Ducts: Both the intra- and extrahepatic biliary system are of normal caliber. The common bile duct measures 3 mm in diameter. Pancreas: Visualized portions of the head and body of the pancreas are unremarkable. Right kidney: Normal echotexture, without mass or hydronephrosis. Right kidney craniocaudal dimension: 10.7 cm Fluid: No evidence of ascites or pleural effusions. Impression: 1. Cholelithiasis without evidence for acute cholecystitis EXAM: MR Abdomen Without Intravenous Contrast, MRCP Protocol CLINICAL HISTORY: Reason for exam: eval for choledoco. TECHNIQUE: Multiplanar magnetic resonance images of the abdomen without intravenous contrast using MRCP protocol. COMPARISON: No relevant prior studies available. FINDINGS: Bile ducts: Unremarkable. No stones. No ductal dilation. Gallbladder: Cholelithiasis without evidence acute cholecystitis. Liver: Unremarkable. Pancreas: Unremarkable. No ductal dilation. Spleen: Unremarkable. No splenomegaly. Adrenals: Unremarkable. No mass. Kidneys and ureters: Unremarkable. No hydronephrosis. Stomach and bowel: Unremarkable. No obstruction. IMPRESSION: No acute findings in the visualized abdomen.
--- NOTE | 2025-03-06 09:51 | Discharge Summary ---
Discharge Summary Date of Service March 06, 2025 Principal Dx & Hospital Course #1 = Principal Diagnosis (1) RUQ pain: (2) Abnormal LFTs: Plan 25-year-old female presenting with right upper quadrant pain, abnormal LFTs. Gallbladder ultrasound reveals cholelithiasis with no evidence of acute cholecystitis. MRCP completed with no abnormalities noted #Right upper quadrant pain/abnormal LFTs/cholelithiasis GB US: cholelithiasis w/o evidence of acute choley MRCP: negative. Hepatitis panel negative; APAP neg; INR WNL. LFTs downtrending --> TB 1.0, AST/ALT 132/282, AP111 GI consulted --> likely passed stone & LFTs now downtrending, no indication for ERCP Surgery consulted --> outpatient follow up to discuss elective lap choley. s/p IVF, tolerating low fat diet on dc. Discharged to home 03/06 Discharged w/ GI prior to dc 03/06. Admission HPI Per Admitting Provider Gwen Mustafa is a pleasant 25yo female Presenting with right upper quadrant pain. Patient was seen at [facility] emergency room on 03/01 with right upper quadrant and epigastric pain. Reports she has tried ibuprofen, Tums and Gas-X which provide temporary relief. She had an ultrasound of the gallbladder which revealed no evidence of cholecystitis or obstruction. She was ultimately discharged home on omeprazole. She has been taking Tylenol and Pepcid. Returns to the ER today with worsening pain, radiation into her back. Some discomfort with deep breaths, nausea and decreased PO intake. Discharge Exam General: NAD, VS: BP 137/90; P69; R16; T36.7C Resp: normal respiratory effort Abd: soft, nontender, + BS Extremities: Moves all extremities, no edema Neuro: A&O x3 Skin: intact, no lesions noted Discharge Plan Discharge Items Patient Disposition: Home - Self-Care Reason For Visit: RUQ PAIN Discharge Diagnosis: Cholelithiasis Condition on Discharge: Serious Activity: Resume your previous activity Non-emergency contact: Primary Care Provider, Surgeon and Drive In Teller Call non-emergency contact if: you have any medication questions, your symptoms worsen and you have a fever Follow-up/Referrals: Lincoln Madden MD [Physician] - 03/24/25 10:00 am Marielena Allen CRNP [Primary Care Provider] - 03/13/25 9:30 am Robby Goldberg MD [Physician] - Diet: Low Fat Addtl Attending Provider Instructions: Ms. Mustafa, You were recently hospitalized for abdominal pain secondary to gallstones. Fortunately, they passed and your pain resolved. However there is a possibility that this can happen again so it is recommended that you have your gallbladder removed on an outpatient basis. Medications: Your medication list has been reviewed and reconciled upon discharge to ensure accuracy and continuity of care. An updated list of all your medications is included with your hospital discharge paperwork. Please review this list closely, and make note of any changes. No new medications were sent on discharge for you Take your medications as instructed; do not skip a dose of your medicines. Make sure all of your doctors know every medicine you are taking (including [id number]-[id number] medicines, vitamins, and supplements). Call your primary care provider before taking any new medicines (including over- the-counter medicines, vitamins, and supplements), because some of these may interact with your current medications, or may make your symptoms worse. Tell your primary care provider if you cannot afford your medications. Activity: You can do normal everyday activities as your body allows. Take rest breaks if you feel tired. Do not overexert. Stop activity if you have pain, shortness of breath or feel dizzy. Follow-up appointments: Make an appointment with your primary care physician within one week of discharge. A copy of this summary will be sent to them. Every time you see your primary care physician, or any other doctor, bring your me dication list, and a list of questions. Please follow up with the surgeon in two weeks, their phone number is above if you should have questions or concerns. Gastroenterology's office phone number is above as well. If your symptoms persist following your gallbladder removal, you should seek a consultation with their outpatient office. CONTACT YOUR PRIMARY CARE PROVIDER if you experience any of the following: Shortness of breath or difficulty breathing Fevers or chills Feeling tired with normal activity or experiencing dizziness or fainting Difficulty following your treatment plan, or difficulty taking medications CALL 911 OR GO TO THE EMERGENCY DEPARTMENT if you experience any of the following: Severe abdominal pain or nausea/vomiting Severe chest pain, or chest pain that radiates (moves) to your jaw or arm Sudden, severe shortness of breath or difficulty breathing Thank you for allowing us to participate in your care. Pending Studies at Discharge: No Stand-Alone Forms: My [facility] [employer], Smoking Cessation Medications and DC Order Prescriptions: Continued omeprazole 20 mg capsule,delayed release(DR/EC) 20 mg PO HS Qty: 34 0RF Rx Instructions: [facility] ER 03/01/25 Discharge Orders: Discharge Order (Routine); Ordered 03/06/25 Ordered By: Tuyet Black/Other Patient Handouts: ED Diet, Low Fat Admission Data Admit Date/Time: 03/04/25 21:35 Attending Provider: Armen Bryant Admit Provider: Marla Bustillo Primary Care Provider: Marielena Allen Other Providers: Robby Goldberg; Marla Bustillo; Lincoln Madden Other Interventions: Discharge Summary Assessment (RN) Last Done: 03/06/25 10:20 Hospital Stay Data Consultations 03/04/25 20:30 ED Decision to Admit Stat 03/04/25 22:00 Consult Gastroenterology Routine 03/05/25 15:32 Consult General Surgery Routine Diagnostic Imagining Performed 03/04/25 18:03 US gallbladder Stat 03/04/25 20:09 MRI MRCP [MR MRCP] Stat Pending Results Patient Have Any Pending Studies at Discharge: No Discharge Instructions Given to Patient (Per Discharging Provider) Ms. Mustafa, You were recently hospitalized for abdominal pain secondary to gallstones. Fortunately, they passed and your pain resolved. However there is a possibility that this can happen again so it is recommended that you have your gallbladder removed on an outpatient basis. Medications: Your medication list has been reviewed and reconciled upon discharge to ensure accuracy and continuity of care. An updated list of all your medications is included with your hospital discharge paperwork. Please review this list closely, and make note of any changes. No new medications were sent on discharge for you Take your medications as instructed; do not skip a dose of your medicines. Make sure all of your doctors know every medicine you are taking (including [id number]-dasptpf medicines, vitamins, and supplements). Call your primary care provider before taking any new medicines (including over- the-counter medicines, vitamins, and supplements), because some of these may interact with your current medications, or may make your symptoms worse. Tell your primary care provider if you cannot afford your medications. Activity: You can do normal everyday activities as your body allows. Take rest breaks if you feel tired. Do not overexert. Stop activity if you have pain, shortness of breath or feel dizzy. Follow-up appointments: Make an appointment with your primary care physician within one week of discharge. A copy of this summary will be sent to them. Every time you see your primary care physician, or any other doctor, bring your medication list, and a list of questions. Please follow up with the surgeon in two weeks, their phone number is above if you should have questions or concerns. Gastroenterology's office phone number is above as well. If your symptoms persist following your gallbladder removal, you should seek a consultation with their outpatient office. CONTACT YOUR PRIMARY CARE PROVIDER if you experience any of the following: Shortness of breath or difficulty breathing Fevers or chills Feeling tired with normal activity or experiencing dizziness or fainting Difficulty following your treatment plan, or difficulty taking medications CALL 911 OR GO TO THE EMERGENCY DEPARTMENT if you experience any of the following: Severe abdominal pain or nausea/vomiting Severe chest pain, or chest pain that radiates (moves) to your jaw or arm Sudden, severe shortness of breath or difficulty breathing Thank you for allowing us to participate in your care. Total Time Total Time Spent Total Time Spent (In Minutes): 45 Total Time Includes: Examination of the Patient, Discharge Planning, Medication Reconciliation and Communication With Other Providers Coding Level of Care Code 78377 INP/OBS DISCH >30 MIN Diagnoses RUQ pain R10.11 Abnormal LFTs R79.89
[2025-03-06 11:47] LABS: Hepatitis A Antibody IgM NON-REACTIVE (NON-REACTIVE); Hepatitis B Core Antibody IgM NON-REACTIVE (NON-REACTIVE)
--- NOTE | 2025-03-06 11:48 | Gastroenterology Progress Note ---
Date of Service March 06, 2025 Assessment & Plan (1) Symptomatic cholelithiasis: (2) Transaminitis: Plan LFTs improved and symptoms resolved. -Needs cholecystectomy. Surgery involved. They have deferred this to outpatient. -Low fat diet until cholecystectomy. -Discussed warning signs of pancreatitis/cholangitis. Admission and Anticipated Discharge Date Admission Date: March 04, 2025 Supervising Physician Co-Signing Physician Notes Discharge prior to being seen. Passed common duct stone. Cholecystectomy per surgery. Subjective Patient is a 25 yo female with symptomatic cholelithiasis and elevated LFTs. Her LFTs are improved today. AST 132, ALT 282, AP 111. She reports resolution of her abdominal pain. She saw general surgery who opted for outpatient cholecystectomy. No fever or jaundice. Review of Systems Gastrointestinal: no abdominal pain Physical Exam Constitutional: well developed Respiratory: normal respiratory effort Gastrointestinal (Abdomen): normal bowel sounds, soft, nontender, no hepatosplenomegaly Psychiatric: Orientation: alert and oriented x 3 Results & Data Results & Data Vital Signs (Past 12 Hours) Vital Signs Temp Pulse Resp BP Pulse Ox O2 Del Method 03/06/25 07:26 36.7 C 69 16 137/90 97 Room Air PG Care Time/CCT Total # of Minutes Spent Total Time Spent with Patient: Total time spent is greater than 50% in coordination of care (as documented) at patient's floor/unit and/or counseling patient: Coding Level of Care Code 57308 SUB INP/OBS CARE 2/35MIN Diagnoses Symptomatic cholelithiasis K80.20 Transaminitis R74.01
== END 2025-03-06 11:48 | disposition home or self-care (01) ==
LOC: ED 17:37 → EDINP 17:37 → SUATTDRO 21:35 → 3N 03-05 00:32